=== PATIENT | female | born 1990 | race Caucasian/White ===

== ENCOUNTER 2017-12-11 19:51 | Emergency (ER) | payer SELFPAY ==
[~2017-12-11 19:51] MED LIST: Sterile Water Irrigation 250 ML BOT ONE
[2017-12-11] MEDS ORDERED: Adacel (T-DAP) 0.5 ML VIAL ONE (20:55)
[2017-12-11] MEDS ORDERED: Lidocaine 1% 20 ML MDV ONE (20:58)
[2017-12-11] MEDS ORDERED: Clindamycin 150 MG CAP ONE (21:45)
== END 2017-12-11 21:51 | disposition home or self-care (01) ==
LOC: MADERS 19:51
DX: L02.415 Cutaneous abscess of right lower limb (principal); Z23 Encounter for immunization
CPT/HCPCS: 10060; 87070; 87077; 87186; 87205; 90471; 90715; J2001